=== PATIENT | female | born 2005 | race Caucasian/White ===

== ENCOUNTER 2023-09-22 22:25 | Emergency (ER) | payer BC ==
[2023-09-22] MEDS: Acetaminophen 325 MG Tab PO ONE (22:51)
[2023-09-22] MEDS: Ondansetron 4 MG Tab.DIS PO ONE (22:52)
[2023-09-22] MEDS: Dexamethasone 4 MG/ML SDV IVPUSH ONE (23:01)
[2023-09-22 23:38] LABS: CORONAVIRUS COVID-19 NAA NEGATIVE (NEGATIVE); INFLUENZA A NAA POSITIVE (NEGATIVE); INFLUENZA B NAA NEGATIVE (NEGATIVE)
[2023-09-22] MEDS: Ibuprofen 600 MG Tab PO ONE (23:43)
== END 2023-09-22 23:50 | disposition home or self-care (01) ==
LOC: DL.ED 22:25
DX: J11.1 Influenza due to unidentified influenza virus with other respiratory manifestations (principal)
CPT/HCPCS: 0240U; 87081; 87430; 96374; 99284; A9270; J1100